=== PATIENT | male | born 1995 | race African-American/Black ===

== ENCOUNTER 2018-05-11 10:42 | Emergency (ER) | payer MEDICAID ==
[~2018-05-11] VITALS: Ht 185.4 cm; Wt 95.0 kg
[2018-05-11] MEDS ORDERED: KETOROLAC 60MG/2ML VIAL IM ONE (11:45)
[2018-05-11 12:26] LABS: CLARITY URINE CLEAR (CLEAR); COLOR URINE YELLOW (YELLOW); SPECIFIC GRAVITY URINE 1.003 (1.005-1.030)
[2018-05-11 12:27] LABS: KETONES URINE NEGATIVE (NEGATIVE); LEUKOCYTE ESTERASE URINE 1+ (NEGATIVE); NITRITE URINE NEGATIVE (NEGATIVE); OCCULT BLOOD URINE NEGATIVE (NEGATIVE); PROTEIN URINE NEGATIVE (NEGATIVE); UROBILINOGEN URINE 0.2 E.U./dL (0.2-1.0)
[2018-05-11 13:20] VITALS: BP 135/73
== END 2018-05-11 13:21 | disposition home or self-care (01) ==
LOC: ER 12:45
DX: R51 Headache (principal); N39.0 Urinary tract infection, site not specified
CPT/HCPCS: 81003; 87086; 96372; 99283; J1885

== ENCOUNTER 2023-02-17 11:55 | Emergency (ER) | payer MEDICAID ==
[~2023-02-17] VITALS: Ht 188 cm; Wt 127.0 kg
[2023-02-17 11:59] VITALS: BP 146/78; RESP 16; TEMP 98.6; O2SAT 100
[2023-02-17 12:01] VITALS: PULSE 67
== END 2023-02-17 15:29 | disposition left against medical advice (07) ==
LOC: ER 11:55
DX: Z53.21 Procedure and treatment not carried out due to patient leaving prior to being seen by health care provider (principal)
CPT/HCPCS: 99281

== ENCOUNTER 2023-11-12 19:30 | Emergency (ER) | payer MEDICAID ==
[~2023-11-12] VITALS: Ht 188 cm; Wt 120.0 kg
[2023-11-12 19:40] VITALS: TEMP 98.7; O2SAT 98
[2023-11-12 22:34] VITALS: BP 144/78; PULSE 74; RESP 16
[2023-11-12] MEDS: PROCHLORPERAZINE 10MG/2ML VIAL IM ONE (22:34)
[2023-11-12] MEDS: KETOROLAC 15MG/ML VIAL IV ONE (22:34)
[2023-11-12] MEDS: SODIUM CHLORIDE 0.9% 1,000 ML IV ONE (22:34)
[2023-11-12] MEDS: DIPHENHYDRAMINE 50MG/ML VIAL IV ONE (22:34)
== END 2023-11-13 01:16 | disposition home or self-care (01) ==
LOC: ER 19:30
DX: R51.9 Headache, unspecified (principal); H53.8 Other visual disturbances
CPT/HCPCS: 99284; 96374; 96375; 96372; J1200; J1885; J0780; J7030